=== PATIENT | male | born 1940 | race Caucasian/White ===

== ENCOUNTER → 2016-07-05 16:51 | Outpatient (CLI) | payer MEDICARE, OTHER | END | disposition home or self-care (01) | LOC: D.MAMMO 09:30 | DX: N63 Unspecified lump in breast (principal) ==

== ENCOUNTER → 2016-12-26 17:17 | Outpatient (CLI) | payer MEDICARE, OTHER ==
[2016-12-26 21:11] LABS: CHOL - HDL RATIO 5.4 ratio (2.3-4.9)
== END | disposition home or self-care (01) ==
LOC: D.LABREF 17:17
PROVIDERS: Internal Medicine Cardiovascular Disease
DX: E78.5 Hyperlipidemia, unspecified (principal)